=== PATIENT | male | born 1950 | race Caucasian/White ===

== ENCOUNTER → 2023-05-26 | Outpatient (REF) | payer BC | LOC: M SMT PRO 12:54 | PROVIDERS: ATTEND Urology | DX: R97.20 Elevated prostate specific antigen [PSA] (principal) ==

== ENCOUNTER → 2024-09-27 | Outpatient (REF) | payer BC | LOC: M SMT 12:55 | PROVIDERS: ATTEND Urology | DX: C61 Malignant neoplasm of prostate (principal) ==